=== PATIENT | female | born 1930 | race Caucasian/White ===

== ENCOUNTER 2017-04-14 19:40 | Emergency (ER) | payer MEDICARE, OTHER ==
[~2017-04-14] VITALS: Ht 165.1 cm; Wt 79.4 kg
[~2017-04-14 19:40] MED LIST: AMLO5 PO; ASCO500; CEPH500 PO; CIPR500; CIPR500 PO; CLON1; DICY20 PO; DICYCLOMINE; DICYCLOMINE PO; DOXY100 PO; DULO60 PO; FAMO20 PO; FOSAMAX; GABA100 PO; HYDACE10B PO; HYDACE5 PO; HYOS.125 SL; LISHYD2025 PO; LOSA50 PO; METO10 PO; METO25 PO; METO50; METR500 PO; MIRT30; NAPR250 PO; NAPR500 PO; OXYACE5T PO; PRIM250 PO; PROACE100; PROACE100 PO; PROM25 PO; Percocet 5-3251 EACH PO; SIMV40; TOCO400; TOVIAZ; TRAZ50; VENL37.5ER PO; VENL75ER PO; Zofran Odt4 MG SL
[2017-04-14] MEDS ORDERED: CYAN500 PO (19:59)
[2017-04-14] MEDS ORDERED: GABA100 PO (20:01)
[2017-04-14] MEDS ORDERED: Inderal80 MG (20:02)
[2017-04-14 20:31] LABS: Source, Urine Catheter
[2017-04-14 20:33] LABS: Bilirubin, Urine Neg (Neg); Blood, Urine Neg (Neg); Glucose Qualitative, Urine Neg (Neg); Ketones, Urine Neg (Neg); Leukocyte Esterase, Urine Neg (Neg); Nitrite, Urine Neg (Neg); Protein, Urine Neg (Neg); Urobilinogen, Urine NORM (Normal)
[2017-04-14 20:42] LABS: Appearance, Urine Clear (Clear); Color, Urine Yellow (P-Yellow)
[2017-04-14 20:53] LABS: Influenza A Negative (NEGATIVE); Influenza B Negative (NEGATIVE)
[2017-04-14 21:07] LABS: BASOPHILS ABSOLUTE AUTO 0.05 K/mm3 (0.00-0.23); BASOPHILS PERCENT AUTO 1 % (0-2); EOSINOPHILS ABSOLUTE AUTO 0.13 K/mm3 (0.00-0.68); EOSINOPHILS PERCENT AUTO 2 % (0-6); Hematocrit 42.8 % (33.0-51.0); Hemoglobin 14.3 g/dL (11.5-16.0); IMMATURE GRAN ABSOLUTE AUTO 0.02 K/mm3 (0.00-0.10); IMMATURE GRAN PERCENT AUTO 0 % (0-1); LYMPHOCYTES ABSOLUTE AUTO 2.24 K/mm3 (0.84-5.20); LYMPHOCYTES PERCENT AUTO 26 % (21-46); MONOCYTES ABSOLUTE AUTO 0.86 K/mm3 (0.16-1.47); MONOCYTES PERCENT AUTO 10 % (4-13); Mean Corpuscular HGB 29.5 pg (26.0-34.0); Mean Corpuscular HGB Conc 33.4 g/dL (31.5-36.5); Mean Corpuscular Volume 88 fL (80-100); Mean Platelet Volume 10.4 fL (9.1-12.4); NEUTROPHILS ABSOLUTE AUTO 5.44 K/mm3 (1.96-9.15); NEUTROPHILS PERCENT AUTO 62 % (41-73); Platelet Count 339 K/mm3 (150-400); RDW Coefficient Variation 13.2 % (11.7-14.2); RDW Standard Deviation 43.1 fL (35.1-46.3); Red Blood Cell Count 4.85 M/mm3 (3.80-5.20); White Blood Cell Count 8.74 K/mm3 (4.00-11.30)
[2017-04-14 21:31] LABS: Alanine Aminotransfer (ALT/SGP 17 U/L (12-78); Albumin, Blood 3.5 g/dL (3.4-5.0); Albumin/Globulin Ratio 0.8 (0.8-1.8); Alk Phos 51 U/L (50-136); Anion Gap 10 mmol/L (6-16); Aspartate Aminotrans (AST/SGOT 17 U/L (12-37); Bilirubin, Total 0.5 mg/dL (0.1-1.0); Blood Urea Nitrogen 12 mg/dL (8-24); Bun/Creatinine Ratio 20.2 (12.0-20.0); CO2, Blood 25 mmol/L (21-32); Calcium, Blood 9.7 mg/dL (8.5-10.1); Chloride, Blood 101 mmol/L (98-108); Creatinine, Blood 0.59 mg/dL (0.40-1.00); Globulin, Blood 4.3 g/dL (2.2-4.0); Glomerular Filtration Rate >60 (60-); Glucose, Blood 96 mg/dL (70-99); Potassium, Blood 3.8 mmol/L (3.5-5.5); Sodium, Blood 136 mmol/L (136-145); Total Protein, Blood 7.8 g/dL (6.4-8.2); Troponin I <0.015 ng/mL (0.000-0.040)
[2017-04-14 21:36] LABS: Thyroid Stimulating Hormone 0.722 uIU/mL (0.360-4.800)
[2018-01-15] MEDS ORDERED: Augmentin 875-1 EACH PO (14:35)
== END 2017-04-14 22:44 | disposition home or self-care (01) ==
LOC: ER 19:40
PROVIDERS: Emergency Medicine
DX: B34.9 Viral infection, unspecified (principal); E86.0 Dehydration; F32.9 Major depressive disorder, single episode, unspecified; F41.9 Anxiety disorder, unspecified; Z88.5 Allergy status to narcotic agent; Z88.8 Allergy status to other drugs, medicaments and biological substances; Z79.899 Other long term (current) drug therapy; Z79.891 Long term (current) use of opiate analgesic
CPT/HCPCS: 36415; 71046; 80053; 81003; 84443; 84484; 85025; 87804; 93005; 93010; 96360; 99284; J7030

== ENCOUNTER 2017-09-19 14:05 | Emergency (ER) | payer MEDICARE, OTHER ==
[~2017-09-19] VITALS: Ht 154.9 cm; Wt 68.0 kg
[~2017-09-19 14:05] MED LIST changes: +CYAN500 PO; +Inderal80 MG
[2017-09-19] MEDS ORDERED: Norco 5-325 Ta1 EACH PO (15:51)
== END 2017-09-19 16:34 | disposition home or self-care (01) ==
LOC: ER 14:05
DX: S29.012A Strain of muscle and tendon of back wall of thorax, initial encounter (principal); M41.9 Scoliosis, unspecified; I10 Essential (primary) hypertension; W19.XXXA Unspecified fall, initial encounter
CPT/HCPCS: 72070; 99283-25

== ENCOUNTER 2018-02-07 18:30 | Emergency (ER) | payer MEDICARE, OTHER ==
[~2018-02-07] VITALS: Ht 152.4 cm; Wt 68.0 kg
[~2018-02-07 18:30] MED LIST changes: +Augmentin 875-1 EACH PO; +Norco 5-325 Ta1 EACH PO
[2018-02-07 19:19] LABS: Source, Urine Clean Catch
[2018-02-07 19:28] LABS: BASOPHILS ABSOLUTE AUTO 0.05 K/mm3 (0.00-0.23); BASOPHILS PERCENT AUTO 0 % (0-2); EOSINOPHILS ABSOLUTE AUTO 0.21 K/mm3 (0.00-0.68); EOSINOPHILS PERCENT AUTO 2 % (0-6); Hematocrit 43.3 % (33.0-51.0); Hemoglobin 14.1 g/dL (11.5-16.0); IMMATURE GRAN ABSOLUTE AUTO 0.05 K/mm3 (0.00-0.10); IMMATURE GRAN PERCENT AUTO 0 % (0-1); LYMPHOCYTES ABSOLUTE AUTO 1.59 K/mm3 (0.84-5.20); LYMPHOCYTES PERCENT AUTO 14 % (21-46); MONOCYTES ABSOLUTE AUTO 0.87 K/mm3 (0.16-1.47); MONOCYTES PERCENT AUTO 8 % (4-13); Mean Corpuscular HGB 29.9 pg (26.0-34.0); Mean Corpuscular HGB Conc 32.6 g/dL (31.5-36.5); Mean Corpuscular Volume 92 fL (80-100); Mean Platelet Volume 10.8 fL (9.1-12.4); NEUTROPHILS ABSOLUTE AUTO 8.48 K/mm3 (1.96-9.15); NEUTROPHILS PERCENT AUTO 76 % (41-73); Platelet Count 315 K/mm3 (150-400); RDW Coefficient Variation 12.8 % (11.7-14.2); RDW Standard Deviation 43.1 fL (35.1-46.3); Red Blood Cell Count 4.71 M/mm3 (3.80-5.20); White Blood Cell Count 11.25 K/mm3 (4.00-11.30)
[2018-02-07 19:32] LABS: Appearance, Urine Hazy (Clear); Bilirubin, Urine Neg (Neg); Blood, Urine 1+ (Neg); Color, Urine Yellow (P-Yellow); Glucose Qualitative, Urine Neg (Neg); Ketones, Urine Neg (Neg); Leukocyte Esterase, Urine 3+ (Neg); Nitrite, Urine Pos (Neg); Protein, Urine 1+ (Neg); Specific Gravity, Urine 1.005 (1.003-1.022); Urobilinogen, Urine NORM (Normal)
[2018-02-07 19:50] LABS: Alanine Aminotransfer (ALT/SGP 17 U/L (12-78); Albumin, Blood 3.8 g/dL (3.4-5.0); Albumin/Globulin Ratio 0.9 (0.8-1.8); Alk Phos 69 U/L (50-136); Anion Gap 8 mmol/L (6-16); Aspartate Aminotrans (AST/SGOT 16 U/L (12-37); Bilirubin, Total 0.6 mg/dL (0.1-1.0); Blood Urea Nitrogen 13 mg/dL (8-24); Bun/Creatinine Ratio 18.3 (12.0-20.0); CO2, Blood 26 mmol/L (21-32); Calcium, Blood 9.8 mg/dL (8.5-10.1); Chloride, Blood 102 mmol/L (98-108); Creatinine, Blood 0.71 mg/dL (0.40-1.00); Globulin, Blood 4.2 g/dL (2.2-4.0); Glomerular Filtration Rate >60 (60-); Glucose, Blood 98 mg/dL (70-99); Potassium, Blood 4.8 mmol/L (3.5-5.5); Sodium, Blood 136 mmol/L (136-145)
[2018-02-07 20:03] LABS: Bacteria Few /hpf; Squamous Epithelial Cells Mod /hpf (Few); White Blood Cells, Urine TNTC /hpf (0-5)
[2018-02-07 20:42] LABS: U Amphetamine Screen Not Detected; U Barbituate Screen Not Detected; U Benzodiazapine Screen Not Detected; U Buprenorphine Screen Not Detected; U Cannabinoids Screen DETECTED; U Cocaine Screen Not Detected; U Methadone Screen Not Detected; U Methamphetamine Screen Not Detected; U Opiates Screen Not Detected; U Oxycodone Screen Not Detected; U Phencyclidine Screen Not Detected
[2018-02-07 20:43] LABS: U Propoxyphene Screen Not Detected
[2018-02-07] MEDS ORDERED: CEPH500 PO (21:08)
== END 2018-02-07 21:44 | disposition home or self-care (01) ==
LOC: ER 18:30
PROVIDERS: Emergency Medicine
DX: N39.0 Urinary tract infection, site not specified (principal); F12.90 Cannabis use, unspecified, uncomplicated; Z88.5 Allergy status to narcotic agent; Z88.8 Allergy status to other drugs, medicaments and biological substances; Z79.899 Other long term (current) drug therapy; I10 Essential (primary) hypertension; F32.9 Major depressive disorder, single episode, unspecified; F41.9 Anxiety disorder, unspecified; Z90.49 Acquired absence of other specified parts of digestive tract; Z90.710 Acquired absence of both cervix and uterus
CPT/HCPCS: 36415; 70450; 80053; 81001; 85025; 93005; 93010; 99285-25; G0480

== ENCOUNTER → 2018-03-28 | Outpatient (CLI) | payer MEDICARE, OTHER | END | disposition home or self-care (01) | LOC: LAB SHORT 18:54 → LAB 18:54 | DX: N39.0 Urinary tract infection, site not specified (principal) | CPT/HCPCS: 87077; 87086; 87186 ==

== ENCOUNTER 2018-07-07 06:42 | Emergency (ER) | payer MEDICARE, OTHER ==
[~2018-07-07] VITALS: Ht 152.4 cm; Wt 68.0 kg
== END 2018-07-07 09:18 | disposition home or self-care (01) ==
LOC: ER 06:42
DX: S70.01XA Contusion of right hip, initial encounter (principal); S80.01XA Contusion of right knee, initial encounter; W18.2XXA Fall in (into) shower or empty bathtub, initial encounter; Z88.5 Allergy status to narcotic agent; Z88.8 Allergy status to other drugs, medicaments and biological substances; Z79.899 Other long term (current) drug therapy; I10 Essential (primary) hypertension; F32.9 Major depressive disorder, single episode, unspecified; F41.9 Anxiety disorder, unspecified
CPT/HCPCS: 73502; 73562-RT; 99284-25

== ENCOUNTER 2018-08-11 13:34 | Inpatient (IN) | payer MEDICARE, OTHER ==
[~2018-08-11] VITALS: Ht 167.6 cm; Wt 70.0 kg
[~2018-08-11 13:34] MED LIST changes: +Bentyl20 MG PO; -DICYCLOMINE; -Inderal80 MG; +Inderal80 MG PO
[2018-08-11 14:59] LABS: BASOPHILS ABSOLUTE AUTO 0.03 K/mm3 (0.00-0.23); BASOPHILS PERCENT AUTO 0 % (0-2); EOSINOPHILS ABSOLUTE AUTO 0.02 K/mm3 (0.00-0.68); EOSINOPHILS PERCENT AUTO 0 % (0-6); Hematocrit 45.2 % (33.0-51.0); Hemoglobin 15.1 g/dL (11.5-16.0); IMMATURE GRAN ABSOLUTE AUTO 0.11 K/mm3 (0.00-0.10); IMMATURE GRAN PERCENT AUTO 1 % (0-1); LYMPHOCYTES ABSOLUTE AUTO 1.14 K/mm3 (0.84-5.20); LYMPHOCYTES PERCENT AUTO 8 % (21-46); MONOCYTES ABSOLUTE AUTO 0.66 K/mm3 (0.16-1.47); MONOCYTES PERCENT AUTO 4 % (4-13); Mean Corpuscular HGB 29.8 pg (26.0-34.0); Mean Corpuscular HGB Conc 33.4 g/dL (31.5-36.5); Mean Corpuscular Volume 89 fL (80-100); Mean Platelet Volume 11.5 fL (9.1-12.4); NEUTROPHILS ABSOLUTE AUTO 13.23 K/mm3 (1.96-9.15); NEUTROPHILS PERCENT AUTO 87 % (41-73); Platelet Count 383 K/mm3 (150-400); RDW Coefficient Variation 13.3 % (11.7-14.2); RDW Standard Deviation 43.1 fL (35.1-46.3); Red Blood Cell Count 5.07 M/mm3 (3.80-5.20); White Blood Cell Count 15.19 K/mm3 (4.00-11.30)
[2018-08-11 15:24] LABS: Alanine Aminotransfer (ALT/SGP 24 U/L (12-78); Albumin, Blood 3.8 g/dL (3.4-5.0); Albumin/Globulin Ratio 0.8 (0.8-1.8); Alk Phos 80 U/L (50-136); Anion Gap 11 mmol/L (6-16); Aspartate Aminotrans (AST/SGOT 19 U/L (12-37); Bilirubin, Total 0.6 mg/dL (0.1-1.0); Blood Urea Nitrogen 15 mg/dL (8-24); CO2, Blood 24 mmol/L (21-32); Calcium, Blood 9.9 mg/dL (8.5-10.1); Chloride, Blood 95 mmol/L (98-108); Creatinine, Blood 0.88 mg/dL (0.40-1.00); Globulin, Blood 4.5 g/dL (2.2-4.0); Glomerular Filtration Rate >60 (60-); Glucose, Blood 108 mg/dL (70-99); Potassium, Blood 3.9 mmol/L (3.5-5.5); Sodium, Blood 130 mmol/L (136-145); Total Protein, Blood 8.3 g/dL (6.4-8.2)
[2018-08-11 15:25] LABS: Troponin I <0.015 ng/mL (0.000-0.040)
[2018-08-11 15:45] LABS: Source, Urine Catheter
[2018-08-11 15:49] LABS: Bilirubin, Urine Neg (Neg); Blood, Urine 2+ (Neg); Glucose Qualitative, Urine Neg (Neg); Ketones, Urine 2+ (Neg); Leukocyte Esterase, Urine Neg (Neg); Nitrite, Urine Neg (Neg); Protein, Urine 2+ (Neg); Urobilinogen, Urine NORM (Normal)
[2018-08-11 15:59] LABS: Appearance, Urine Clear (Clear); Color, Urine Yellow (P-Yellow)
[2018-08-11 16:01] LABS: Bacteria Few /hpf; Squamous Epithelial Cells Few /hpf (Few); White Blood Cells, Urine 0-2 /hpf (0-5)
[2018-08-11 17:39] LABS: U Amphetamine Screen Not Detected; U Barbituate Screen Not Detected; U Benzodiazapine Screen Not Detected; U Buprenorphine Screen Not Detected; U Cannabinoids Screen Not Detected; U Cocaine Screen Not Detected; U Methadone Screen Not Detected; U Methamphetamine Screen Not Detected; U Opiates Screen Not Detected; U Oxycodone Screen Not Detected; U Phencyclidine Screen Not Detected; U Propoxyphene Screen Not Detected
--- NOTE | 2018-08-12 04:28 | NUR ---
SHIFT SUMMARY PT NEW ED ADMIT THIS EVENING. DAUGHTER AT BEDSIDE AT TIME OF ADMISSION. DAUGHTER WAS ABLE TO ANSWER ALL QUESTIONS REGARDING PT'S MEDICATIONS AND HEALTH HISTORY PT IS NOT ORIENTED. PT ONLY ORIENTED TO SELF AND FAMILY. VERY CONFUSED. FIDGETED WITH SELF FREQUENTLY BEFORE FALLING ASLEEP. PULLING OUT ONE IV. ITCHING ABRA[place] AREA. CLEANED [place] WELL AND APPLIED BABY POWDER. THIS SEEMED TO HELP WITH ITCHINESS. WHEN ASKED WHY PT WAS ITCHING AT [place] PT WOULD ANSWER WITH, "I DIDN'T KNOW I WAS". PT INCONTINENT THIS EVENING. ATTENDS IN PLACE. REMAINED IN BED THROUGHOUT THE NIGHT. BED ALARM ON FOR SAFETY. DAUGHTER REPORTED PT WAS HAVING SOME ABD TENDERNESS AND HAS A HX OF DIVERTICULITIS BUT PT DID NOT SHOW ANY SIGNS OF TENDERNESS WHEN ABD WAS PALPATED. DAUGHTER ALSO REPORTED THAT PT HAS FALLEN AT HOME MULTIPLE TIMES RECENTLY AND THAT PT NEEDS PLACEMENT IN TO A FACILITY AT THIS POINT DUE TO A RAPID DECLINE. PT PLEASANTLY CONFUSED. MILDLY AGITATED AT TIMES BUT CALMS WITH GENTLE TALK AND TOUCH. VITAL SIGNS STABLE. SLEPT WELL THIS EVENING. WILL CONTINUE TO MONITOR.
[2018-08-12 04:56] LABS: BASOPHILS ABSOLUTE AUTO 0.03 K/mm3 (0.00-0.23); BASOPHILS PERCENT AUTO 0 % (0-2); EOSINOPHILS ABSOLUTE AUTO 0.06 K/mm3 (0.00-0.68); EOSINOPHILS PERCENT AUTO 1 % (0-6); Hematocrit 39.5 % (33.0-51.0); Hemoglobin 13.2 g/dL (11.5-16.0); IMMATURE GRAN ABSOLUTE AUTO 0.04 K/mm3 (0.00-0.10); IMMATURE GRAN PERCENT AUTO 0 % (0-1); LYMPHOCYTES ABSOLUTE AUTO 1.82 K/mm3 (0.84-5.20); LYMPHOCYTES PERCENT AUTO 17 % (21-46); MONOCYTES ABSOLUTE AUTO 1.27 K/mm3 (0.16-1.47); MONOCYTES PERCENT AUTO 12 % (4-13); Mean Corpuscular HGB 29.4 pg (26.0-34.0); Mean Corpuscular HGB Conc 33.4 g/dL (31.5-36.5); Mean Corpuscular Volume 88 fL (80-100); Mean Platelet Volume 10.8 fL (9.1-12.4); NEUTROPHILS ABSOLUTE AUTO 7.38 K/mm3 (1.96-9.15); NEUTROPHILS PERCENT AUTO 70 % (41-73); Platelet Count 320 K/mm3 (150-400); RDW Coefficient Variation 13.3 % (11.7-14.2); RDW Standard Deviation 43.3 fL (35.1-46.3); Red Blood Cell Count 4.49 M/mm3 (3.80-5.20)
[2018-08-12 05:26] LABS: Alanine Aminotransfer (ALT/SGP 18 U/L (12-78); Albumin, Blood 3.4 g/dL (3.4-5.0); Albumin/Globulin Ratio 0.9 (0.8-1.8); Alk Phos 64 U/L (50-136); Anion Gap 8 mmol/L (6-16); Aspartate Aminotrans (AST/SGOT 16 U/L (12-37); Bilirubin, Total 0.6 mg/dL (0.1-1.0); Blood Urea Nitrogen 18 mg/dL (8-24); Bun/Creatinine Ratio 19.3 (12.0-20.0); CO2, Blood 26 mmol/L (21-32); Calcium, Blood 9.2 mg/dL (8.5-10.1); Chloride, Blood 98 mmol/L (98-108); Creatinine, Blood 0.94 mg/dL (0.40-1.00); Globulin, Blood 3.7 g/dL (2.2-4.0); Glomerular Filtration Rate >60 (60-); Glucose, Blood 97 mg/dL (70-99); Magnesium, Blood 1.9 mg/dL (1.6-2.4); Potassium, Blood 3.8 mmol/L (3.5-5.5); Sodium, Blood 132 mmol/L (136-145); Total Protein, Blood 7.1 g/dL (6.4-8.2)
--- NOTE | 2018-08-12 10:48 | NUR ---
Patient is lying in bed and sleeping when I entered patient's room. Patient easily awakened to the sound of her name. Patient is confused and had trouble answering simple questions (this could be because she just woke up or it could be her base line). When I ask questions around patient's trent patient is clear and speaks of the love and strength she receives from her prayers. God is patient's source of terry and hope. Patient says that she has been a member of the [employer] for 16 years. Patient welcomes prayer. I listened empathically, provided emotional support and prayer. Patient responded well and showed sigs of increased peace.
--- NOTE | 2018-08-12 13:02 | NUR ---
CALLED HOSPITALIST PT'S DAUGHTER INFORMED ME THAT THE PT HAD BEEN INGESTING DUTERA ESSENTIAL OILS. THESE HERBAL OILS CAN BE INGESTED OR PUT ON THE SKIN. THE CAREGIVER IS BRINGING THE BOTTLE IN TODAY TO SHOW US. NO NEW ORDERS.
--- NOTE | 2018-08-12 16:44 | NUR ---
SHIFT SUMMARY 88 YR OLD FEMALE ADMITTED FOR TOXIC METABOLIC ENCEPHALOPATHY. DNR CODE. PT IS CONFUSED BUT NORMALLY A&O AT HOME. PT USES A FWW @ HOME. TODAY PT GOT HER TO AMBULATE W/FWW. PT IS UP IN CHAIR THROUGH MOST OF SHIFT. MEDS MAY BE TAKEN WHOLE WITH WATER. NS IS RUNNING AT 75 ML/HR. CAREGIVER BROUGHT BAG OF HERBAL PILLS AND OILS THAT PT HAD BEEN SELF MEDICATING WITH ( WELL TAKING HER PRESCRIPTIONS) - THIS BAG IS IN PT'S DRAWER AND THE HOSPITALIST HAS BEEN NOTIFIED. FAMILY IS UNSURE IF PT WAS TAKING CORRECT DOSAGES OF THE PRESCRIPTIONS AND HERBAL REMEMDIES.
--- NOTE | 2018-08-13 03:57 | NUR ---
was sitting in chair, saw something on the floor and decided to pick it up, after standing to retrive the object from the floor she fell down when trying to sit back into her chair, she was alert and answering questions, stated she had not hit anyting on the way down and denied any pain, she later stated she had hit the arm of the chair on the way down, no bruising has been noted, cn informed, dr notified, will continue to montitor and treat
[2018-08-13 05:38] LABS: Anion Gap 6 mmol/L (6-16); Blood Urea Nitrogen 17 mg/dL (8-24); Bun/Creatinine Ratio 21.5 (12.0-20.0); CO2, Blood 28 mmol/L (21-32); Calcium, Blood 8.9 mg/dL (8.5-10.1); Chloride, Blood 102 mmol/L (98-108); Creatinine, Blood 0.79 mg/dL (0.40-1.00); Glomerular Filtration Rate >60 (60-); Glucose, Blood 94 mg/dL (70-99); Potassium, Blood 3.6 mmol/L (3.5-5.5); Sodium, Blood 136 mmol/L (136-145)
--- NOTE | 2018-08-13 07:13 | NUR ---
alert to self, call light in reach, at one point last night she could not understand how the nurse was able to walk on the wall, ns infusing with no s/sx of infection or infiltration noted, room air
--- NOTE | 2018-08-13 11:38 | NUR ---
HANDOFF NOTE PT HAS BEEN TRANSFERED TO SCU ROOM 353 DUE TO CONFUSION AND A RECENT FALL. HANDOFF REPORT HAS BEEN GIVEN TO NURSE GOYO. GOYO HAD NO FURTHER QUESTIONS. FAMILY AND CAREGIVER INFORMED. CHART AND PERSONAL POSSESSIONS TRANSFERED WITH PT.
--- NOTE | 2018-08-13 11:47 | NUR ---
1140 PATIENT TRANFERRED FROM 335 DUE TO INCREASED CONFUSION. PATIENT IS COOPERATIVE. HER CAREGIVER IS WITH HER AT THIS TIME AND PATIENT REQUESTED TO SIT IN CHAIR. HE KNOWS SHE IS AT THE HOSPITAL AND HER NAME. SHE HAS NO COMPLAINTS OF PAIN AT THIS TIME. SHE HAS NO SKIN ISSUES . CHAIR ALARM ON. NO DISTRESS NOTED, ON RA. FRIENDS IN ROOM.
--- NOTE | 2018-08-13 16:41 | NUR ---
PATIENT CONFUSED AND IMPULSIVE . SHE HAS BEEN ON HER CHAIR WITH TAB ALARM ON AND FAMILY IN ROOM SHE TRIES TO GET UP WITHOUT ASSISTANCE. SHE IS ONE PERSON ASSIST WITH [facility]. SHE IS PLEASANT AND COOPERATIVE WITH CARES AND REDIRECTS EASILY. FAMILY IS AT BEDSIDE.
--- NOTE | 2018-08-13 20:59 | NUR ---
PATIENT WATCHNG TV IN CHAIR. ALARM ACTIVATED. DENIES PAIN, SOB, AND N/V. REPORTS SHE LIKES TO STAY UP BEFORE GOING TO BED. CALL LIGHT IN REACH.
--- NOTE | 2018-08-13 21:05 | NUR ---
PATIENT ACTIVATED CHAIR ALARM X 3 STANDING UP AND REPOSITIONING HER GOWN OR TRYING TO REACH FOR TISSUES ON THE BED THAT ARE NOT THERE. TISSUES BROUGHT TO CHAIR SIDE AND PATIENT GOWN READJUSTED. CHAIR ALARM ACTIVATED.
--- NOTE | 2018-08-13 22:44 | NUR ---
PATIENT HAVING INCREASED CONFUSION. BACK INTO BED FROM CHAIR. PATIENT REPORTS SHE IS SEEING A MICROWAVE IN THE ROOM LOOKING AT THE TV. PATIENT REMINDED TV WAS JUST TURNED OFF AND IT IS JUST A TV. PATIENT THEN REPORTED SHE WAS HAPPY TO GO TO [facility] TODAY. PATIENT ORIENTED BACK TO PLACE AND TIME. PATIENT READY FOR BED AFTER WARM BLANKETS PROVIDED. CALL LIGHT IN REACH. BED ALARM ACTIVATED.
--- NOTE | 2018-08-14 03:40 | NUR ---
SHIFT SUMMARY PATIENT HAVING INCREASED CONFUSION. AXOX 1-2 W/DEMENTIA. PATIENT REPORTS SHE KNOWS SHE IS GETTING INCREASINGLY CONFUSED AND FORGETFUL. PATIENT REPORTS SEEING A MICROWAVE ON WALL IN ROOM. SHE THOUGHT SHE WAS IN HER GRANDPARENT'S HOUSE THIS SHIFT AND IN STAFFS HOUSE EARLIER. NO IV ACCESS. TOOK MEDICATION WHOLE WITH WATER. DENIES PAIN, SOB, AND N/V. VSS/AFEBRILE. PATIENT IS IMPULSIVE AND LIKES TO REACH FOR ITEMS EITHER THAT FELL ON FLOOR OR OUT OF HER REACH. PATIENT ACTIVATED CHAIR/BED ALARM X SIX. CALL LIGHT IN REACH. BED IN LOWEST POSITION. WILL CONTINUE TO MONITOR UNTIL DAY SHIFT NURSE ASSUMES CARE.
--- NOTE | 2018-08-14 15:24 | NUR ---
NO ACUTE CHANGES. PATIENT REMAINS FORGETFUL AND AT TIMES CONFUSED. SHE IS AWARE OF HER MENTAL DECLINE. SHE IS PLEASANT AND COOPERATIVE WITH CARES AND STAFF. FAMILY IS IN DURING THE DAY AND PLACEMENT IS AN ISSUE . FAMILY IS EAGER TO MEET WITH SET UP MACHINIST IN THE HOPES OF FINDING LONG-TERM CARE THEY STATE THEY ARE UNABLE TO BRING HER INTO THEIR HOME.
--- NOTE | 2018-08-15 04:11 | NUR ---
SHIFT SUMMARY PATIENT HAD NO ACUTE CHANGES OBSERVED THIS SHIFT. AXOX 2 WITH LESS CONFUSION VS LAST NOCX SHIFT. NO VISUAL HALLUCINATIONS NOTED. PATIENT ABLE TO TELL STORIES OF VACATION IN [place] AND BEING IN THE [employer]. NO IV ACCESS. DENIES PAIN, SOB, AND N/V. VSS/AFEBRILE. WAITING PLACEMENT. CALL LIGHT IN REACH. BED IN LOWEST POSITION. WILL CONTINUE TO MONITOR UNTIL DAY SHIFT NURSE ASSUMES CARE.
[2018-08-15 13:22] LABS: Adenovirus F 40/41 Not Detected (NOT DETECT); Astrovirus Not Detected (NOT DETECT); Campylobacter Sp Not Detected (NOT DETECT); Cryptosporidium Not Detected (NOT DETECT); Cyclospora Cayetanensis Not Detected (NOT DETECT); E. Coli O157 Not Detected (NOT DETECT); Entamoeba Histolytica Not Detected (NOT DETECT); Enteroaggregative E. coli-EAEC Not Detected (NOT DETECT); Enteropathogenic E. coli-EPEC Not Detected (NOT DETECT); Enterotoxigenic E. coli-ETEC Not Detected (NOT DETECT); Giardia Lamblia Not Detected (NOT DETECT); Norovirus GI/GII Not Detected (NOT DETECT); Plesiomonas Shigelloides Not Detected (NOT DETECT); Rotavirus A Not Detected (NOT DETECT); Salmonella Sp Not Detected (NOT DETECT); Sapovirus Not Detected (NOT DETECT); Shiga Toxin-prod E. coli-STEC Not Detected (NOT DETECT); Shigella/Enteroin E. coli-EIEC Not Detected (NOT DETECT); Vibrio Cholerae Not Detected (NOT DETECT); Vibrio Sp Not Detected (NOT DETECT); Yersinia Enterocolitica Not Detected (NOT DETECT)
--- NOTE | 2018-08-15 16:15 | NUR ---
SUMMARY PT A/O X3 THIS AM, MENTATION IMPROVED. SHE STATE NO PAIN/DISCOMFORT. STATE CONCERN FOR CONSTIPATION, PRUNE JUICE GIVEN, POSITIVE RESULTS, STOOL SPECIMEN COLLECTED/SENT-GI PANEL NEGATIVE. PT/OT IN FOR [facility]IONA. DR MADRIGAL IN TO SEE PT & DAUGHTER THIS AFTERNOON, ORDER [facility] CONSULT FOR SAFE D/C. ISHAAN E[place]IOTT STATE NEED FOR ASSISTED LIVING, POSSIBLE D/C HOME TOMORROW & DAUGHTER WILL WORK ON GETTING HER INTO ASSISTED LIVING OUTPT. VSS.
--- NOTE | 2018-08-16 05:36 | NUR ---
SHIFT SUMMARY PT SLEPT FAIR, HAD TWO INCONTINENT LOOSE BM'S DURING THE NIGHT. PT SHOWERED OFF AFTER SECOND LOOSE BM PER HER REQUEST. BACK TO BED. NO ACUTE EVENTS NOTED DURING THE NIGHT, WILL CONTINUE TO MONITOR.
--- NOTE | 2018-08-16 16:01 | NUR ---
SUMMARY PT HAS BEEN A/O X3-4 T/O DAY, PLEASANT AFFECT, VERY APPRECIATIVE. SHE HAS HX CHR BACK PAIN, PRN NAPROSYN GIVEN FOR RELIEF/CONTROL THIS AM. REPORTS POOR SLEEP LAST NOC SO HAS NAPPED INTERMITTANTLY TODAY. SHE HAS PARTICIPATED WITH PT/OT, AMBULATES TO BR & OUT IN [place] W FWW, SBA. HER DAUGHTER, KAITLIN & [facility] ARRANGING FOR SAFE D/C TO ASSISTED LIVING FACILITY WHEN APPROP. PT IS IN AGRREEMENT WITH MOVING TO ASSISTED LIVING, STATE INTERVIEWS WITH FACILTY [employer]PS HAS BEEN POSITIVE.
--- NOTE | 2018-08-17 06:01 | NUR ---
SHIFT SUMMARY PT SLEPT WELL DURING THE NIGHT. UP TO BATHROOM X1. SOME CONFUSION NOTED THIS AM AND DURING THE EVENING. NO ACUTE EVENTS OVER NIGHT, WILL CONTINUE TO MONITOR.
[2018-08-17] MEDS ORDERED: CIPR500 PO ×2 (11:47)
[2018-08-17] MEDS ORDERED: METR500 PO (11:48)
[2018-08-17] MEDS ORDERED: Florastor250 MG PO (11:48)
--- NOTE | 2018-08-17 11:58 | NUR ---
PATIENT DISCHARGE: PATIENT DISCHARGED TO HOME ([place]) THIS SHIFT. MEDICATION RECONCILIATION COMPLETED; MED LIST FAXED TO [place]. PATIENT DEPARTED MEDICAL FLOOR VIA [facility] WHEELCHAIR AT 1135.
== END 2018-08-17 11:50 | disposition home health service (06) | DRG 391 ==
LOC: ER 13:34 → MEDS 17:49 → ENPENDDIS 08-17 10:21 → MEDS 08-17 11:50
PROVIDERS: Emergency Medicine; Nurse Practitioner Acute Care; ADMIT Internal Medicine
DX: K57.32 Diverticulitis of large intestine without perforation or abscess without bleeding (principal); G92 Toxic encephalopathy; E87.1 Hypo-osmolality and hyponatremia; K58.9 Irritable bowel syndrome, unspecified; F41.8 Other specified anxiety disorders; I10 Essential (primary) hypertension; M54.9 Dorsalgia, unspecified; G89.29 Other chronic pain; E87.6 Hypokalemia; F32.9 Major depressive disorder, single episode, unspecified; Z66 Do not resuscitate; I16.0 Hypertensive urgency; F03.90 Unspecified dementia, unspecified severity, without behavioral disturbance, psychotic disturbance, mood disturbance, and anxiety; R29.6 Repeated falls; I95.9 Hypotension, unspecified; K21.9 Gastro-esophageal reflux disease without esophagitis; M79.2 Neuralgia and neuritis, unspecified
CPT/HCPCS: 0097U; 36415; 70450; 71045; 74177; 80048; 80053; 81001; 83735; 83880; 84484; 85025; 93005; 93010; 96360-59; 96361-59; 97110; 97116; 97162; 97166; 97530; 97535; 99285-25; A9270-GY; J0744; J1650; J7030; Q9967

== ENCOUNTER 2018-09-01 07:23 | Emergency (ER) | payer MEDICARE, OTHER ==
[~2018-09-01] VITALS: Ht 152.4 cm; Wt 66.7 kg
[~2018-09-01 07:23] MED LIST changes: +Florastor250 MG PO
[2018-09-01] MEDS ORDERED: CHOL10002 (07:53)
[2018-09-01] MEDS ORDERED: LAXATIVE DIETA500 MG (07:53)
== END 2018-09-01 08:41 | disposition home or self-care (01) ==
LOC: ER 07:23
DX: S09.90XA Unspecified injury of head, initial encounter (principal); F41.9 Anxiety disorder, unspecified; F32.9 Major depressive disorder, single episode, unspecified
CPT/HCPCS: 99283

== ENCOUNTER → 2020-04-30 | Outpatient (CLI) | payer MEDICARE, OTHER ==
[~2020-04-30] MED LIST changes: +ACET325 PO; -AMLO5 PO; +Amlodipine Bes2.5 MG PO; +Bentyl10 MG PO; +CALCIUM PO; +DICLOFENAC SOD100 G1 TOP; +Inderal 20 mg T20 MG PO; -LOSA50 PO; +LOSARTAN POTAS100 M1 PO; +MELATONIN1010 PO; +Magnesium Oxid500 MG PO; +NAPROXEN250 M1 PO; +OMEP20ER PO; +SULTRIDS PO; +VITAMIN B122500 MC1 PO; +VITAMIN D5000 UNIT PO; +ZYRTEC10 M2 PO; +[UNRECOGNIZED DRUG - CODE] SL
== END | disposition home or self-care (01) ==
LOC: LAB SHORT 13:34 → LAB 13:34
DX: N39.0 Urinary tract infection, site not specified (principal)
CPT/HCPCS: 87077; 87086; 87186

== ENCOUNTER 2020-05-03 20:41 | Inpatient (IN) | payer OTHER, MEDICARE ==
[~2020-05-03] VITALS: Ht 157.5 cm; Wt 68.1 kg
[~2020-05-03 20:41] MED LIST changes: -ACET325 PO; -Amlodipine Bes2.5 MG PO; -Bentyl10 MG PO; -CALCIUM PO; -DICLOFENAC SOD100 G1 TOP; -DULO60 PO; -Florastor250 MG PO; -Inderal 20 mg T20 MG PO; -Inderal80 MG PO; -LOSARTAN POTAS100 M1 PO; -MELATONIN1010 PO; -Magnesium Oxid500 MG PO; -NAPROXEN250 M1 PO; -OMEP20ER PO; -SULTRIDS PO; -VITAMIN B122500 MC1 PO; -VITAMIN D5000 UNIT PO; -ZYRTEC10 M2 PO; -[UNRECOGNIZED DRUG - CODE] SL
[2020-05-03] MEDS ORDERED: GABA100 PO ×2 (21:11→22:56)
[2020-05-03 21:42] LABS: BASOPHILS ABSOLUTE AUTO 0.04 K/mm3 (0.00-0.23); BASOPHILS PERCENT AUTO 0 % (0-2); EOSINOPHILS ABSOLUTE AUTO 0.18 K/mm3 (0.00-0.68); EOSINOPHILS PERCENT AUTO 1 % (0-6); Hematocrit 41.9 % (33.0-51.0); Hemoglobin 13.9 g/dL (11.5-16.0); IMMATURE GRAN ABSOLUTE AUTO 0.07 K/mm3 (0.00-0.10); IMMATURE GRAN PERCENT AUTO 1 % (0-1); LYMPHOCYTES ABSOLUTE AUTO 0.89 K/mm3 (0.84-5.20); LYMPHOCYTES PERCENT AUTO 7 % (21-46); MONOCYTES ABSOLUTE AUTO 0.99 K/mm3 (0.16-1.47); MONOCYTES PERCENT AUTO 7 % (4-13); Mean Corpuscular HGB Conc 33.2 g/dL (31.5-36.5); Mean Corpuscular Volume 90 fL (80-100); Mean Platelet Volume 10.9 fL (9.1-12.4); NEUTROPHILS ABSOLUTE AUTO 11.28 K/mm3 (1.96-9.15); NEUTROPHILS PERCENT AUTO 84 % (41-73); Platelet Count 370 K/mm3 (150-400); RDW Standard Deviation 42.5 fL (35.1-46.3); Red Blood Cell Count 4.64 M/mm3 (3.80-5.20); White Blood Cell Count 13.45 K/mm3 (4.00-11.30)
[2020-05-03 21:55] LABS: Alanine Aminotransfer (ALT/SGP 18 U/L (12-78); Albumin, Blood 3.5 g/dL (3.4-5.0); Albumin/Globulin Ratio 0.8 (0.8-1.8); Alk Phos 60 U/L (50-136); Anion Gap 7 mmol/L (6-16); Aspartate Aminotrans (AST/SGOT 24 U/L (12-37); Bilirubin, Total 0.6 mg/dL (0.1-1.0); Blood Urea Nitrogen 14 mg/dL (8-24); Bun/Creatinine Ratio 16.1 (12.0-20.0); CO2, Blood 28 mmol/L (21-32); Calcium, Blood 9.3 mg/dL (8.5-10.1); Chloride, Blood 97 mmol/L (98-108); Creatinine, Blood 0.87 mg/dL (0.40-1.00); Globulin, Blood 4.6 g/dL (2.2-4.0); Glomerular Filtration Rate >60 (60-); Glucose, Blood 105 mg/dL (70-99); Potassium, Blood 4.4 mmol/L (3.5-5.5); Sodium, Blood 132 mmol/L (136-145); Total Protein, Blood 8.1 g/dL (6.4-8.2)
[2020-05-03] MEDS ORDERED: DICLOFENAC SOD100 G1 TOP (22:54)
[2020-05-03] MEDS ORDERED: Amlodipine Bes2.5 MG PO (22:55)
[2020-05-03] MEDS ORDERED: CALCIUM PO (22:56)
[2020-05-03] MEDS ORDERED: DULO60 PO (22:56)
[2020-05-03] MEDS ORDERED: Florastor250 MG PO (22:57)
[2020-05-03] MEDS ORDERED: Inderal 20 mg T20 MG PO (22:57)
[2020-05-03] MEDS ORDERED: LOSARTAN POTAS100 M1 PO (22:58)
[2020-05-03] MEDS ORDERED: OMEP20ER PO (22:58)
[2020-05-03] MEDS ORDERED: Magnesium Oxid500 MG PO (22:59)
[2020-05-03] MEDS ORDERED: Inderal80 MG PO (23:00)
[2020-05-03] MEDS ORDERED: VITAMIN D5000 UNIT PO (23:01)
[2020-05-03] MEDS ORDERED: VITAMIN B122500 MC1 PO (23:01)
[2020-05-03] MEDS ORDERED: [UNRECOGNIZED DRUG - CODE] SL (23:02)
[2020-05-03] MEDS ORDERED: Bentyl10 MG PO (23:02)
[2020-05-03] MEDS ORDERED: MELATONIN1010 PO (23:03)
[2020-05-03] MEDS ORDERED: ZYRTEC10 M2 PO (23:04)
[2020-05-03] MEDS ORDERED: NAPROXEN250 M1 PO (23:04)
[2020-05-03] MEDS ORDERED: SULTRIDS PO (23:05)
[2020-05-03 23:36] LABS: Source, Urine Clean Catch
[2020-05-03 23:57] LABS: Appearance, Urine Clear (Clear); Bilirubin, Urine Neg (Neg); Blood, Urine 1+ (Neg); Color, Urine Yellow (P-Yellow); Glucose Qualitative, Urine Neg (Neg); Ketones, Urine Neg (Neg); Leukocyte Esterase, Urine 1+ (Neg); Nitrite, Urine Neg (Neg); Protein, Urine Neg (Neg); Urobilinogen, Urine NORM (Normal)
[2020-05-04 00:08] LABS: Bacteria Rare /hpf; Red Blood Cells, Urine 0-2 /hpf (0-2); Squamous Epithelial Cells Few /hpf (Few)
[2020-05-04 05:01] LABS: BASOPHILS ABSOLUTE AUTO 0.04 K/mm3 (0.00-0.23); BASOPHILS PERCENT AUTO 0 % (0-2); EOSINOPHILS ABSOLUTE AUTO 0.09 K/mm3 (0.00-0.68); EOSINOPHILS PERCENT AUTO 1 % (0-6); Hematocrit 42.4 % (33.0-51.0); Hemoglobin 13.8 g/dL (11.5-16.0); IMMATURE GRAN ABSOLUTE AUTO 0.06 K/mm3 (0.00-0.10); IMMATURE GRAN PERCENT AUTO 1 % (0-1); LYMPHOCYTES ABSOLUTE AUTO 0.78 K/mm3 (0.84-5.20); LYMPHOCYTES PERCENT AUTO 6 % (21-46); MONOCYTES ABSOLUTE AUTO 1.32 K/mm3 (0.16-1.47); MONOCYTES PERCENT AUTO 11 % (4-13); Mean Corpuscular HGB 29.6 pg (26.0-34.0); Mean Corpuscular HGB Conc 32.5 g/dL (31.5-36.5); Mean Corpuscular Volume 91 fL (80-100); NEUTROPHILS ABSOLUTE AUTO 9.92 K/mm3 (1.96-9.15); NEUTROPHILS PERCENT AUTO 81 % (41-73); Platelet Count 343 K/mm3 (150-400); RDW Coefficient Variation 13.2 % (11.7-14.2); RDW Standard Deviation 43.6 fL (35.1-46.3); Red Blood Cell Count 4.67 M/mm3 (3.80-5.20); White Blood Cell Count 12.21 K/mm3 (4.00-11.30)
[2020-05-04 05:47] LABS: Anion Gap 8 mmol/L (6-16); Blood Urea Nitrogen 11 mg/dL (8-24); Bun/Creatinine Ratio 13.7 (12.0-20.0); CO2, Blood 28 mmol/L (21-32); Calcium, Blood 8.9 mg/dL (8.5-10.1); Chloride, Blood 99 mmol/L (98-108); Glomerular Filtration Rate >60 (60-); Glucose, Blood 113 mg/dL (70-99); Potassium, Blood 3.8 mmol/L (3.5-5.5); Sodium, Blood 135 mmol/L (136-145)
--- NOTE | 2020-05-04 06:07 | NUR ---
PT ADMIT TO ROOM 311 THIS SHIFT. PT IS UNSTEADY WITH FWW, FORGETFUL AT TIMES, LOS COYOTES WITH POOR EYESIGHT. 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 PLEASANT AND COOPERATIVE 1-ASSIST TO BSC. FEBRILE IN ER, PT LIVES AT [facility].
--- NOTE | 2020-05-04 15:58 | NUR ---
PATIENT PLEASANT AND COOPERATIVE WITH STAFF. VITALS HAVE BEEN STABLE. CONTINUES ON IV ABX WITHOUT S/SX OF ADVERSE REACTIONS NOTED OR REPORTED. CALLS APPROPRIATELY FOR STAFF ASSIST. DENIES PAIN AND DISCOMFORT. PATIENT SITTING UPRIGHT IN BEDSIDE CHAIR AT THIS TIME. CALL LIGHT IN REACH.
[2020-05-05 04:42] LABS: BASOPHILS ABSOLUTE AUTO 0.04 K/mm3 (0.00-0.23); BASOPHILS PERCENT AUTO 0 % (0-2); EOSINOPHILS ABSOLUTE AUTO 0.42 K/mm3 (0.00-0.68); EOSINOPHILS PERCENT AUTO 4 % (0-6); Hematocrit 33.2 % (33.0-51.0); IMMATURE GRAN ABSOLUTE AUTO 0.04 K/mm3 (0.00-0.10); IMMATURE GRAN PERCENT AUTO 0 % (0-1); LYMPHOCYTES ABSOLUTE AUTO 1.02 K/mm3 (0.84-5.20); LYMPHOCYTES PERCENT AUTO 11 % (21-46); MONOCYTES ABSOLUTE AUTO 1.29 K/mm3 (0.16-1.47); MONOCYTES PERCENT AUTO 14 % (4-13); Mean Corpuscular HGB 29.9 pg (26.0-34.0); Mean Corpuscular HGB Conc 33.1 g/dL (31.5-36.5); Mean Corpuscular Volume 90 fL (80-100); Mean Platelet Volume 10.6 fL (9.1-12.4); NEUTROPHILS ABSOLUTE AUTO 6.67 K/mm3 (1.96-9.15); NEUTROPHILS PERCENT AUTO 70 % (41-73); Platelet Count 264 K/mm3 (150-400); RDW Coefficient Variation 12.9 % (11.7-14.2); Red Blood Cell Count 3.68 M/mm3 (3.80-5.20); White Blood Cell Count 9.48 K/mm3 (4.00-11.30)
[2020-05-05 05:06] LABS: Albumin, Blood 2.7 g/dL (3.4-5.0); Anion Gap 7 mmol/L (6-16); Blood Urea Nitrogen 12 mg/dL (8-24); Bun/Creatinine Ratio 17.2 (12.0-20.0); CO2, Blood 24 mmol/L (21-32); Calcium, Blood 7.8 mg/dL (8.5-10.1); Chloride, Blood 105 mmol/L (98-108); Glomerular Filtration Rate >60 (60-); Glucose, Blood 94 mg/dL (70-99); Phosphorus, Blood 2.4 mg/dL (2.5-4.9); Potassium, Blood 3.8 mmol/L (3.5-5.5); Sodium, Blood 136 mmol/L (136-145)
--- NOTE | 2020-05-05 07:18 | NUR ---
SHIFT SUMMARY PATIENT ALERT AND ORIENTED. HAD NO COMPLAINTS OF PAIN OR SHORTNESS OF BREATH. SLEPT WELL OVERNIGHT. NO ACUTE ISSUES NOTED. IV PATENT AND INFUSING. BED IN LOWEST POSITION WITH WHEELS LOCKED AND ALARM ON. CALL LIGHT WITHIN REACH. REPORT GIVEN TO ONCOMING RN.
[2020-05-05] MEDS ORDERED: CEPH500 PO (10:53)
[2020-05-05] MEDS ORDERED: ACET325 PO (10:54)
--- NOTE | 2020-05-05 11:31 | NUR ---
DISCHARGE INSTRUCTIONS GIVEN TO PATIENT. ALL QUESTIONS ANSWERED. ABX FAXED TO [facility] PER PATIENT REQUEST. IV REMOVED. PATIENT IN ROOM GETTING DRESSED FOR DISCHARGE HOME. DAUGHTER, MARCIAL, CALLED AND INFORMED OF DISCHARGE AND WILL BE HERE AT NOON FOR PATIENT.
== END 2020-05-05 12:44 | disposition home or self-care (01) | DRG 872 ==
LOC: ER 20:41 → ERHOLD 20:42 → MEDS 05-04 02:33
PROVIDERS: Internal Medicine; Nurse Practitioner Acute Care; Physician Assistant; ADMIT Internal Medicine
DX: A41.59 Other Gram-negative sepsis (principal); N39.0 Urinary tract infection, site not specified; I10 Essential (primary) hypertension; Z88.2 Allergy status to sulfonamides; Z88.8 Allergy status to other drugs, medicaments and biological substances; Z66 Do not resuscitate; Z88.5 Allergy status to narcotic agent; F32.9 Major depressive disorder, single episode, unspecified; G89.29 Other chronic pain; Z98.890 Other specified postprocedural states; Z90.49 Acquired absence of other specified parts of digestive tract
CPT/HCPCS: 36415; 71045; 80048; 80053; 80069; 81001; 83605; 85025; 87040; 87086; 93005; 93010; 96365; 97116; 97162; 99285-25; A9270; G0378; J0696; J1650; J7030

== ENCOUNTER 2020-05-05 18:21 | Emergency (ER) | payer MEDICARE, OTHER ==
[~2020-05-05] VITALS: Ht 152.4 cm; Wt 68.0 kg
[~2020-05-05 18:21] MED LIST changes: +ACET325 PO; +Amlodipine Bes2.5 MG PO; +Bentyl10 MG PO; +CALCIUM PO; +DICLOFENAC SOD100 G1 TOP; +DULO60 PO; +Florastor250 MG PO; +Inderal 20 mg T20 MG PO; +Inderal80 MG PO; +LOSARTAN POTAS100 M1 PO; +MELATONIN1010 PO; +Magnesium Oxid500 MG PO; +NAPROXEN250 M1 PO; +OMEP20ER PO; +SULTRIDS PO; +VITAMIN B122500 MC1 PO; +VITAMIN D5000 UNIT PO; +ZYRTEC10 M2 PO; +[UNRECOGNIZED DRUG - CODE] SL
== END 2020-05-05 21:44 | disposition home or self-care (01) ==
LOC: ER 18:21
DX: S43.205A Unspecified dislocation of left sternoclavicular joint, initial encounter (principal); I10 Essential (primary) hypertension; Z88.5 Allergy status to narcotic agent; Z88.8 Allergy status to other drugs, medicaments and biological substances; Z79.899 Other long term (current) drug therapy; W01.190A Fall on same level from slipping, tripping and stumbling with subsequent striking against furniture, initial encounter
CPT/HCPCS: 71045; 73000; 96372; 99283-25; A9270; J1885

== ENCOUNTER → 2020-06-21 | Outpatient (CLI) | payer MEDICARE, OTHER ==
[2020-06-21 19:06] LABS: BASOPHILS ABSOLUTE AUTO 0.06 K/mm3 (0.00-0.23); BASOPHILS PERCENT AUTO 1 % (0-2); EOSINOPHILS ABSOLUTE AUTO 0.24 K/mm3 (0.00-0.68); EOSINOPHILS PERCENT AUTO 3 % (0-6); Hemoglobin 12.4 g/dL (11.5-16.0); IMMATURE GRAN ABSOLUTE AUTO 0.02 K/mm3 (0.00-0.10); IMMATURE GRAN PERCENT AUTO 0 % (0-1); LYMPHOCYTES ABSOLUTE AUTO 2.06 K/mm3 (0.84-5.20); LYMPHOCYTES PERCENT AUTO 24 % (21-46); MONOCYTES ABSOLUTE AUTO 0.73 K/mm3 (0.16-1.47); MONOCYTES PERCENT AUTO 8 % (4-13); Mean Corpuscular HGB 30.2 pg (26.0-34.0); Mean Corpuscular HGB Conc 31.8 g/dL (31.5-36.5); Mean Corpuscular Volume 95 fL (80-100); Mean Platelet Volume 11.9 fL (9.1-12.4); NEUTROPHILS ABSOLUTE AUTO 5.54 K/mm3 (1.96-9.15); NEUTROPHILS PERCENT AUTO 64 % (41-73); Platelet Count 339 K/mm3 (150-400); RDW Coefficient Variation 13.3 % (11.7-14.2); RDW Standard Deviation 45.6 fL (35.1-46.3); White Blood Cell Count 8.65 K/mm3 (4.00-11.30)
[2020-06-21 20:43] LABS: Alanine Aminotransfer (ALT/SGP 17 U/L (12-78); Albumin, Blood 3.5 g/dL (3.4-5.0); Albumin/Globulin Ratio 0.9 (0.8-1.8); Alk Phos 53 U/L (50-136); Amylase, Blood 33 U/L (25-115); Anion Gap 3 mmol/L (6-16); Aspartate Aminotrans (AST/SGOT 10 U/L (12-37); Bilirubin, Total 0.2 mg/dL (0.1-1.0); Blood Urea Nitrogen 13 mg/dL (8-24); Bun/Creatinine Ratio 14.8 (12.0-20.0); CO2, Blood 31 mmol/L (21-32); Calcium, Blood 8.6 mg/dL (8.5-10.1); Chloride, Blood 104 mmol/L (98-108); Creatinine, Blood 0.88 mg/dL (0.40-1.00); Globulin, Blood 4.1 g/dL (2.2-4.0); Glomerular Filtration Rate >60 (60-); Glucose, Blood 80 mg/dL (70-99); Potassium, Blood 4.2 mmol/L (3.5-5.5); Sodium, Blood 138 mmol/L (136-145); Total Protein, Blood 7.6 g/dL (6.4-8.2)
== END | disposition home or self-care (01) ==
LOC: LAB SHORT 16:15 → LAB 16:15
PROVIDERS: Family Medicine
DX: R10.9 Unspecified abdominal pain (principal)
CPT/HCPCS: 80053; 82150; 83690; 85025

== ENCOUNTER 2020-10-28 08:06 | Emergency (ER) | payer MEDICARE, OTHER ==
[~2020-10-28] VITALS: Ht 160 cm; Wt 70.3 kg
[2020-10-28 08:35] LABS: Source, Urine Catheter
[2020-10-28 08:39] LABS: BASOPHILS ABSOLUTE AUTO 0.02 K/mm3 (0.00-0.23); BASOPHILS PERCENT AUTO 0 % (0-2); EOSINOPHILS PERCENT AUTO 1 % (0-6); IMMATURE GRAN ABSOLUTE AUTO 0.07 K/mm3 (0.00-0.10); IMMATURE GRAN PERCENT AUTO 1 % (0-1); LYMPHOCYTES ABSOLUTE AUTO 2.19 K/mm3 (0.84-5.20); LYMPHOCYTES PERCENT AUTO 20 % (21-46); MONOCYTES ABSOLUTE AUTO 1.15 K/mm3 (0.16-1.47); MONOCYTES PERCENT AUTO 11 % (4-13); Mean Corpuscular HGB 30.2 pg (26.0-34.0); Mean Corpuscular HGB Conc 34.1 g/dL (31.5-36.5); Mean Corpuscular Volume 89 fL (80-100); Mean Platelet Volume 11.6 fL (9.1-12.4); NEUTROPHILS ABSOLUTE AUTO 7.45 K/mm3 (1.96-9.15); NEUTROPHILS PERCENT AUTO 68 % (41-73); Platelet Count 315 K/mm3 (150-400); RDW Coefficient Variation 13.3 % (11.7-14.2); RDW Standard Deviation 43.8 fL (35.1-46.3); Red Blood Cell Count 4.63 M/mm3 (3.80-5.20); White Blood Cell Count 10.98 K/mm3 (4.00-11.30)
[2020-10-28 08:41] LABS: Appearance, Urine Clear (Clear); Bilirubin, Urine Neg (Neg); Blood, Urine 3+ (Neg); Color, Urine Yellow (P-Yellow); Glucose Qualitative, Urine Neg (Neg); Ketones, Urine Neg (Neg); Leukocyte Esterase, Urine 1+ (Neg); Nitrite, Urine Neg (Neg); Protein, Urine 1+ (Neg); Urobilinogen, Urine NORM (Normal); pH, Urine 6.5 (5.0-8.0)
[2020-10-28 08:56] LABS: Alanine Aminotransfer (ALT/SGP 17 U/L (12-78); Albumin, Blood 3.4 g/dL (3.4-5.0); Albumin/Globulin Ratio 0.8 (0.8-1.8); Alk Phos 66 U/L (50-136); Anion Gap 5 mmol/L (6-16); Aspartate Aminotrans (AST/SGOT 29 U/L (12-37); Bacteria Few /hpf; Bilirubin, Total 0.8 mg/dL (0.1-1.0); Blood Urea Nitrogen 18 mg/dL (8-24); Bun/Creatinine Ratio 22.3 (12.0-20.0); CO2, Blood 29 mmol/L (21-32); Calcium, Blood 9.5 mg/dL (8.5-10.1); Chloride, Blood 95 mmol/L (98-108); Creatinine, Blood 0.81 mg/dL (0.40-1.00); Globulin, Blood 4.1 g/dL (2.2-4.0); Glomerular Filtration Rate >60 (60-); Glucose, Blood 102 mg/dL (70-99); Potassium, Blood 3.9 mmol/L (3.5-5.5); Renal Epithelial Rare /hpf (0-Rare); Sodium, Blood 129 mmol/L (136-145); Squamous Epithelial Cells Few /hpf (Few); Total Protein, Blood 7.5 g/dL (6.4-8.2)
[2020-10-28] MEDS ORDERED: SULTRIDS PO (11:22)
[2020-10-28] MEDS ORDERED: NITR100CA PO (12:02)
[2020-10-28] MEDS ORDERED: CEPH500 PO ×2 (12:46)
== END 2020-10-28 12:38 | disposition home or self-care (01) ==
LOC: ER 08:06
PROVIDERS: Emergency Medicine
DX: E87.1 Hypo-osmolality and hyponatremia (principal); E86.0 Dehydration; N39.0 Urinary tract infection, site not specified; I10 Essential (primary) hypertension; Z88.5 Allergy status to narcotic agent; Z88.2 Allergy status to sulfonamides; Z79.899 Other long term (current) drug therapy
CPT/HCPCS: 70450; 80053; 81001; 84484; 85025; 87086; 93005; 93010; 96365; 99285-25; J0696; J7030

== ENCOUNTER 2020-10-28 23:22 | Emergency (ER) | payer MEDICARE, OTHER ==
[~2020-10-28] VITALS: Ht 152.4 cm; Wt 68.0 kg
[~2020-10-28 23:22] MED LIST changes: +NITR100CA PO
== END 2020-10-29 03:47 | disposition home or self-care (01) ==
LOC: ER 23:22
DX: S00.01XA Abrasion of scalp, initial encounter (principal); S69.92XA Unspecified injury of left wrist, hand and finger(s), initial encounter; I10 Essential (primary) hypertension; Z88.5 Allergy status to narcotic agent; Z88.2 Allergy status to sulfonamides; Z88.1 Allergy status to other antibiotic agents; Z79.899 Other long term (current) drug therapy; W18.30XA Fall on same level, unspecified, initial encounter
CPT/HCPCS: 70450; 72125; 73110; 99284-25

== ENCOUNTER 2020-10-30 16:15 | Emergency (ER) | payer MEDICARE, OTHER ==
[~2020-10-30] VITALS: Ht 165.1 cm; Wt 70.3 kg
[2020-10-30 18:10] LABS: BASOPHILS ABSOLUTE AUTO 0.02 K/mm3 (0.00-0.23); BASOPHILS PERCENT AUTO 0 % (0-2); EOSINOPHILS PERCENT AUTO 0 % (0-6); Hematocrit 43.1 % (33.0-51.0); Hemoglobin 14.5 g/dL (11.5-16.0); IMMATURE GRAN ABSOLUTE AUTO 0.14 K/mm3 (0.00-0.10); IMMATURE GRAN PERCENT AUTO 1 % (0-1); LYMPHOCYTES ABSOLUTE AUTO 0.98 K/mm3 (0.84-5.20); LYMPHOCYTES PERCENT AUTO 5 % (21-46); MONOCYTES ABSOLUTE AUTO 1.98 K/mm3 (0.16-1.47); MONOCYTES PERCENT AUTO 10 % (4-13); Mean Corpuscular HGB 30.2 pg (26.0-34.0); Mean Corpuscular HGB Conc 33.6 g/dL (31.5-36.5); Mean Corpuscular Volume 90 fL (80-100); Mean Platelet Volume 12.5 fL (9.1-12.4); NEUTROPHILS ABSOLUTE AUTO 17.15 K/mm3 (1.96-9.15); NEUTROPHILS PERCENT AUTO 85 % (41-73); Platelet Count 244 K/mm3 (150-400); RDW Coefficient Variation 14.8 % (11.7-14.2); RDW Standard Deviation 46.5 fL (35.1-46.3); White Blood Cell Count 20.27 K/mm3 (4.00-11.30)
[2020-10-30 19:25] LABS: Alanine Aminotransfer (ALT/SGP 19 U/L (12-78); Albumin, Blood 3.2 g/dL (3.4-5.0); Albumin/Globulin Ratio 0.7 (0.8-1.8); Alk Phos 62 U/L (50-136); Anion Gap 10 mmol/L (6-16); Aspartate Aminotrans (AST/SGOT 28 U/L (12-37); Bilirubin, Total 1.3 mg/dL (0.1-1.0); Blood Urea Nitrogen 19 mg/dL (8-24); Bun/Creatinine Ratio 22.4 (12.0-20.0); CO2, Blood 24 mmol/L (21-32); Calcium, Blood 9.5 mg/dL (8.5-10.1); Chloride, Blood 101 mmol/L (98-108); Creatinine, Blood 0.85 mg/dL (0.40-1.00); Globulin, Blood 4.4 g/dL (2.2-4.0); Glomerular Filtration Rate >60 (60-); Glucose, Blood 101 mg/dL (70-99); Potassium, Blood 3.5 mmol/L (3.5-5.5); Sodium, Blood 135 mmol/L (136-145); Total Protein, Blood 7.6 g/dL (6.4-8.2)
== END 2020-10-30 20:39 | disposition home or self-care (01) ==
LOC: ER 16:15
PROVIDERS: Family Medicine
DX: M25.532 Pain in left wrist (principal); Z88.5 Allergy status to narcotic agent; Z88.2 Allergy status to sulfonamides; Z88.1 Allergy status to other antibiotic agents; Z79.899 Other long term (current) drug therapy; W19.XXXA Unspecified fall, initial encounter
CPT/HCPCS: 36415; 51798; 73110; 80053; 85025

== ENCOUNTER → 2020-11-05 | Emergency (ER) | payer MEDICARE, OTHER ==
[~2020-11-05] VITALS: Ht 162.6 cm; Wt 63.5 kg
[2020-11-05 10:49] LABS: BASOPHILS ABSOLUTE AUTO 0.05 K/mm3 (0.00-0.23); BASOPHILS PERCENT AUTO 1 % (0-2); EOSINOPHILS ABSOLUTE AUTO 0.22 K/mm3 (0.00-0.68); EOSINOPHILS PERCENT AUTO 2 % (0-6); Hemoglobin 13.3 g/dL (11.5-16.0); IMMATURE GRAN ABSOLUTE AUTO 0.05 K/mm3 (0.00-0.10); IMMATURE GRAN PERCENT AUTO 1 % (0-1); LYMPHOCYTES ABSOLUTE AUTO 1.13 K/mm3 (0.84-5.20); LYMPHOCYTES PERCENT AUTO 11 % (21-46); MONOCYTES ABSOLUTE AUTO 0.63 K/mm3 (0.16-1.47); MONOCYTES PERCENT AUTO 6 % (4-13); Mean Corpuscular HGB 30.2 pg (26.0-34.0); Mean Corpuscular HGB Conc 33.3 g/dL (31.5-36.5); Mean Corpuscular Volume 91 fL (80-100); Mean Platelet Volume 10.8 fL (9.1-12.4); NEUTROPHILS PERCENT AUTO 80 % (41-73); Platelet Count 397 K/mm3 (150-400); RDW Coefficient Variation 13.3 % (11.7-14.2); RDW Standard Deviation 44.8 fL (35.1-46.3); Red Blood Cell Count 4.41 M/mm3 (3.80-5.20); White Blood Cell Count 10.58 K/mm3 (4.00-11.30)
[2020-11-05 11:11] LABS: Alanine Aminotransfer (ALT/SGP 18 U/L (12-78); Albumin, Blood 3.2 g/dL (3.4-5.0); Albumin/Globulin Ratio 0.8 (0.8-1.8); Alk Phos 59 U/L (50-136); Anion Gap 6 mmol/L (6-16); Aspartate Aminotrans (AST/SGOT 13 U/L (12-37); Bilirubin, Total 0.4 mg/dL (0.1-1.0); Blood Urea Nitrogen 18 mg/dL (8-24); Bun/Creatinine Ratio 24.1 (12.0-20.0); CO2, Blood 29 mmol/L (21-32); Calcium, Blood 9.7 mg/dL (8.5-10.1); Chloride, Blood 100 mmol/L (98-108); Creatinine, Blood 0.75 mg/dL (0.40-1.00); Glomerular Filtration Rate >60 (60-); Glucose, Blood 96 mg/dL (70-99); Potassium, Blood 4.1 mmol/L (3.5-5.5); Sodium, Blood 135 mmol/L (136-145); Total Protein, Blood 7.2 g/dL (6.4-8.2)
[2020-11-05 11:41] LABS: SARS-Cov-2 (COVID-19) PCR, MMC NEGATIVE (NEGATIVE)
[2020-11-05 12:09] LABS: Source, Urine Clean Catch
[2020-11-05 12:26] LABS: Appearance, Urine Clear (Clear); Bilirubin, Urine Neg (Neg); Blood, Urine Neg (Neg); Color, Urine Yellow (P-Yellow); Glucose Qualitative, Urine Neg (Neg); Ketones, Urine 2+ (Neg); Leukocyte Esterase, Urine 1+ (Neg); Nitrite, Urine Neg (Neg); Protein, Urine 1+ (Neg); Urobilinogen, Urine NORM (Normal)
[2020-11-05 13:20] LABS: Red Blood Cells, Urine 0-2 /hpf (0-2); White Blood Cells, Urine 0-2 /hpf (0-5)
[2020-11-05 13:21] LABS: Bacteria Few /hpf; Squamous Epithelial Cells Few /hpf (Few)
== END ==
LOC: ER 09:44
PROVIDERS: Emergency Medicine
DX: R53.1 Weakness (principal); Z20.822 Contact with and (suspected) exposure to COVID-19; I10 Essential (primary) hypertension; F41.9 Anxiety disorder, unspecified; Z88.5 Allergy status to narcotic agent; Z88.2 Allergy status to sulfonamides; Z88.8 Allergy status to other drugs, medicaments and biological substances; Z79.899 Other long term (current) drug therapy
CPT/HCPCS: 71045; 80053; 81001; 85025; 87086; 93005; 93010; 99285-25; J7030; U0004

== ENCOUNTER → 2020-11-11 | Outpatient (CLI) | payer MEDICARE, OTHER ==
[2020-11-11 19:38] LABS: Appearance, Urine Clear (Clear); Bilirubin, Urine Neg (Neg); Blood, Urine Neg (Neg); Color, Urine Yellow (P-Yellow); Glucose Qualitative, Urine Neg (Neg); Ketones, Urine Neg (Neg); Leukocyte Esterase, Urine Neg (Neg); Nitrite, Urine Neg (Neg); Protein, Urine 1+ (Neg); Urobilinogen, Urine NORM (Normal)
== END | disposition home or self-care (01) ==
LOC: LAB SHORT 17:59
PROVIDERS: Family Medicine
DX: N39.0 Urinary tract infection, site not specified (principal)
CPT/HCPCS: 87086

== ENCOUNTER → 2020-11-19 | Outpatient (CLI) | payer MEDICARE, OTHER | END | disposition home or self-care (01) | LOC: LAB SHORT 14:35 | DX: N39.0 Urinary tract infection, site not specified (principal) | CPT/HCPCS: 87086 ==

== ENCOUNTER → 2020-12-31 | Outpatient (CLI) | payer MEDICARE, OTHER | END | disposition home or self-care (01) | LOC: LAB SHORT 16:47 → LAB 16:47 | DX: N39.0 Urinary tract infection, site not specified (principal) | CPT/HCPCS: 87086 ==